=== PATIENT | female | born 1990 | race Caucasian/White ===

== ENCOUNTER → 2023-07-18 | Outpatient (CLI) | payer OTHER ==
[~2023-07-18] MED LIST: ACET500 PO; ALBU90OI INH; AZIT250 PO; BCPS; CEPH500 PO; CODACE30 PO; Cleocin HCl300 MG PO; DOXY100 PO; HYDACE5 PO; IBUP800 PO; META800 PO; OMEP40CA12 PO; Prednisone20 MG PO; RXHYDACE PO; SEASONIQUE; TRIA80TC TOP
== END ==
LOC: LAB 19:40 → LAB SHORT 19:40
DX: J02.9 Acute pharyngitis, unspecified (principal)
CPT/HCPCS: 87081; 87147